=== PATIENT | female | born 1985 | race African-American/Black ===

== ENCOUNTER 2017-02-22 15:28 | Emergency (ER) | payer OTHER ==
[~2017-02-22] VITALS: Ht 162.6 cm; Wt 84.0 kg
[~2017-02-22 15:28] MED LIST: MOTRIN OTC; NYQUIL; TRAM50TA3 PO
[2017-02-22 15:38] VITALS: BP 134/98
== END 2017-02-22 18:12 | disposition left against medical advice (07) ==
LOC: ER 17:34
DX: R07.9 Chest pain, unspecified (principal); R05 Cough; Z53.21 Procedure and treatment not carried out due to patient leaving prior to being seen by health care provider
CPT/HCPCS: 93005

== ENCOUNTER 2017-05-23 00:33 | Emergency (ER) | payer OTHER ==
[~2017-05-23] VITALS: Ht 165.1 cm; Wt 91.0 kg
[2017-05-23] MEDS ORDERED: KETOROLAC 60MG/2ML VIAL IM ONE (05:30)
[2017-05-23] MEDS ORDERED: TETANUS, DIPHTHERIA, PERTUSSIS VAC/PF 0.5ML (>7YR OLD) IM ONE (05:30)
[2017-05-23] MEDS ORDERED: LIDOCAINE HCL 1% 20ML VIAL (Pyxis) INJ MC ONE (06:30)
[2017-05-23] MEDS ORDERED: LIDOCAINE/EPINEPHR/TETRACAINE 3ML TP ONE (06:30)
[2017-05-23] MEDS ORDERED: BACITRACIN ZINC OINT UDPKT TOP ONE (06:30)
[2017-05-23 09:30] VITALS: BP 131/88
== END 2017-05-23 09:31 | disposition home or self-care (01) ==
LOC: ER 00:33
DX: S61.512A Laceration without foreign body of left wrist, initial encounter (principal); F17.200 Nicotine dependence, unspecified, uncomplicated; X83.8XXA Intentional self-harm by other specified means, initial encounter; Y93.89 Activity, other specified; Y92.89 Other specified places as the place of occurrence of the external cause; Y99.8 Other external cause status
CPT/HCPCS: 12005; 73090; 73110; 73130; 90471; 90715; 96372; 99284; J1885; J3490; X7700; Z7610